=== PATIENT | female | born 1940 | race Caucasian/White ===

== ENCOUNTER 2016-09-15 15:20 | Emergency (ER) | payer MEDICARE ==
[~2016-09-15 15:20] MED LIST: ASAB PO; CEFT5 PO; MACROBID; MULTIVIT/MIN PO; NORV5 PO; RESTASIS OPH; SYN88 PO; [UNRECOGNIZED DRUG - OTHER] PO; [UNRECOGNIZED DRUG - REMARK] PO
== END 2016-09-15 15:25 | disposition home or self-care (01) ==
LOC: ER 15:20
DX: S46.912A Strain of unspecified muscle, fascia and tendon at shoulder and upper arm level, left arm, initial encounter (principal); Z88.2 Allergy status to sulfonamides; Z88.1 Allergy status to other antibiotic agents; Z88.8 Allergy status to other drugs, medicaments and biological substances; Z79.82 Long term (current) use of aspirin; Z79.899 Other long term (current) drug therapy; W19.XXXA Unspecified fall, initial encounter
CPT/HCPCS: 73030-LT; 99283